=== PATIENT | female | born 1990 | race Caucasian/White ===

== ENCOUNTER 2018-04-26 11:27 | Emergency (ER) | payer OTHER ==
[2018-04-26 11:37] VITALS: BP 124/77
--- NOTE | 2018-04-26 11:59 | ER Document Report ---
ED Medical Screen (RME) - General Chief Complaint: Headache Stated Complaint: HEADACHE Time Seen by Provider: 04/26/18 11:54 Mode of Arrival: Ambulatory Information source: Patient Notes: 27-year-old female with no reported past medical history presents with complaint of 1 week of intermittent headache that she describes as throbbing, located in different areas of her head. Patient has had associated blurred vision. She has taken Tylenol without relief. Her last dose was this morning. Patient does have a history of kidney failure secondary to preeclampsia. Patient is also concerned because she has been unable to detect a heart rate at home. I have greeted and performed a rapid initial assessment of this patient. A comprehensive ED assessment and evaluation of the patient including analysis of labs and imaging ( if obtained) and completion of medical decision making will be conducted by an additional ED provider. PHYSICAL EXAMINATION: GENERAL: Well-appearing, well-nourished and in no acute distress. HEAD: Atraumatic, normocephalic. EYES: Pupils equal round extraocular movements intact, conjunctiva are normal. ENT: Nares patent NECK: Normal range of motion LUNGS: No respiratory distress Musculoskeletal: Normal range of motion NEUROLOGICAL: Normal speech, normal gait. PSYCH: Normal mood, normal affect. SKIN: Warm, Dry, normal turgor, no rashes or lesions noted. TRAVEL OUTSIDE OF THE [place] IN LAST 30 DAYS: No - Related Data Allergies/Adverse Reactions: zolpidem tartrate [From Ambien] Adverse Reaction (Intermediate, Verified 16:39) Hallucinations Past Medical History - Immunizations Immunizations up to date: Yes Hx Diphtheria, Pertussis, Tetanus Vaccination: Yes - 07/12/13 Physical Exam - Vital signs Vitals: Temp Pulse Resp BP Pulse Ox 98.6 F 109 H 18 124/77 98 04/26/18 11:35 04/26/18 11:35 04/26/18 11:35 04/26/18 11:35 04/26/18 11:35 Course - Vital Signs Vital signs: Temp Pulse Resp BP Pulse Ox 98.6 F 109 H 18 124/77 98 04/26/18 11:35 04/26/18 11:35 04/26/18 11:35 04/26/18 11:35 04/26/18 11:35
[2018-04-26] MEDS ORDERED: DIPHENHYDRAMINE HCL 50 MG/ML VIAL IV ONE (12:27)
[2018-04-26] MEDS ORDERED: PROCHLORPERAZINE EDISYLATE INJ 10 MG/2 ML VIAL IV ONE (12:27)
[2018-04-26] MEDS ORDERED: NORMAL SALINE 1000 ML 1,000 ML IV ONE (12:27)
--- NOTE | 2018-04-26 12:30 | ER Document Report ---
ED Headache - General Mode of Arrival: Ambulatory Information source: Patient TRAVEL OUTSIDE OF THE [place] IN LAST 30 DAYS: No <ALEXEI COELHO - Last Filed: 04/26/18 12:25> <FERNANDO MUNSON - Last Filed: 04/26/18 14:30> - General Chief Complaint: Headache Stated Complaint: HEADACHE Time Seen by Provider: 04/26/18 11:54 Notes: Patient is a 27 year old female currently 14 weeks presents to the emergency department complaining of a headache onset 1 week ago. Patient states her headache has been intermittent and is located all over, further stating she sometimes the headache is located frontally or globally. She also complains of some blurry vision. Patient denies any new nausea, vomiting or vaginal bleeding. Patient also mentions being unable to hear heart tones today further stating she has been listening every week and was unable to do so this morning. Patient is and states with her 1st in 2012 she had kidney failure secondary to preeclampsia. She also states she had to be induced at 37 weeks with her 2nd due to loosing blood and being unable to pinpoint why. (ALEXEI COELHO) - Related Data Allergies/Adverse Reactions: zolpidem tartrate [From Ambien] Adverse Reaction (Intermediate, Verified 12:02) Hallucinations Past Medical History - General Information source: Patient - Social History Smoking Status: Never Smoker Chew tobacco use (# tins/day): No Frequency of alcohol use: None Drug Abuse: None Family History: None Patient has suicidal ideation: No Patient has homicidal ideation: No - Immunizations Immunizations up to date: Yes Hx Diphtheria, Pertussis, Tetanus Vaccination: Yes - 07/12/13 <ALEXEI COELHO - Last Filed: 04/26/18 12:25> Review of Systems - Review of Systems Constitutional: No symptoms reported EENT: See HPI, Blurred vision Cardiovascular: No symptoms reported Respiratory: No symptoms reported Gastrointestinal: No symptoms reported Genitourinary: No symptoms reported Female Genitourinary: See HPI, Musculoskeletal: No symptoms reported Skin: No symptoms reported Hematologic/Lymphatic: No symptoms reported Neurological/Psychological: See HPI, Headaches -: Yes All other systems reviewed and negative <ALEXEI COELHO - Last Filed: 04/26/18 12:25> Physical Exam - HEENT Head: Normocephalic, Atraumatic Eyes: Normal Conjunctiva: Normal Extraocular movements intact: Yes Pupils: PERRL Sinus: Normal. No: Redness, Swelling, Tenderness Mucous membranes: Normal Neck: Normal - Respiratory Respiratory status: No respiratory distress Chest status: Nontender Breath sounds: Normal Chest palpation: Normal - Cardiovascular Rhythm: Regular Heart sounds: Normal auscultation Murmur: No Friction rub: No Gallop: None auscultated - Abdominal Inspection: Normal Distension: No distension Bowel sounds: Normal Tenderness: Nontender Organomegaly: No organomegaly - Back Back: Normal - Extremities General upper extremity: Normal ROM General lower extremity: Normal ROM - Neurological Neuro grossly intact: Yes Cognition: Normal Orientation: AAOx4 [place] Coma Scale Eye Opening: Spontaneous Susie Coma Scale Verbal: Oriented Susie Coma Scale Motor: Obeys Commands [place] Coma Scale Total: 15 Speech: Normal - Psychological Associated symptoms: Normal affect, Normal mood - Skin Skin Temperature: Warm Skin Moisture: Dry Skin Color: Normal <ALEXEI COELHO - Last Filed: 04/26/18 12:25> - Vital signs Vitals: Temp Pulse Resp BP Pulse Ox 98.6 F 109 H 18 124/77 98 04/26/18 11:35 04/26/18 11:35 04/26/18 11:35 04/26/18 11:35 04/26/18 11:35 Course <ALEXEI COELHO - Last Filed: 04/26/18 12:25> - Laboratory Result Diagrams: 04/26/18 13:15 04/26/18 13:15 <FERNANDO MUNSON - Last Filed: 04/26/18 14:30> - Re-evaluation Re-evalutation: 04/26/18 14:27 Patient reports that her headache is completely gone and she feels back to normal. I reviewed her history again with her, the physical exam which did not support a muscle tension type headache. The complete elimination of her headache with only IV fluids, Benadryl and Compazine. She also mentioned an episode on the toilet yesterday where she felt like she was going to black out and her vision was blurry briefly. She is advised to follow-up with her [employer] doctor if the headaches return for further evaluation, and treatment for possible migraine. (FERNANDO MUNSON) - Vital Signs Vital signs: Temp Pulse Resp BP Pulse Ox 98.6 F 109 H 18 124/77 98 04/26/18 11:35 04/26/18 11:35 04/26/18 11:35 04/26/18 11:35 04/26/18 11:35 - Laboratory Laboratory results interpreted by me: 04/26/18 04/26/18 12:05 13:15 BUN 5 L Glucose 63 L Ur Leukocyte Esterase SMALL H Discharge <ALEXEI COELHO - Last Filed: 04/26/18 12:25> <FERNANDO MUNSON - Last Filed: 04/26/18 14:30> - Discharge Clinical Impression: Migraine headache Qualifiers: Migraine type: unspecified Status migrainosus presence: without status migrainosus Intractability: not intractable Qualified Code(s): G43.909 - Migraine, unspecified, not intractable, without status migrainosus Qualifiers: Weeks of gestation: 14 weeks Qualified Code(s): Z3A.14 - 14 weeks gestation of Condition: Stable Disposition: HOME, SELF-CARE Additional Instructions: Headache: The physician does not feel that the headache you are experiencing has a serious underlying cause. Most headaches are due to emotional stress, with resultant muscle tension (tension headache). Occasionally, headaches are secondary to changes in the blood vessels of the scalp (vascular headache and migraine headache). Sometimes, a headache is the first symptom of another developing illness, such as a viral infection. You have no evidence of stroke, bleeding, meningitis, or other serious cause of your headache. The treatment of headaches varies with the severity and cause of the pain. Not all headaches need pain shots. In fact, there is evidence that using narcotics for headaches may make them worse in the long run. The physician will determine the therapy that's in your best interest. If you develop a fever, if the headache is different from any you've previously experienced, or if the headache progressively worsens, then call your physician at once or go to the emergency room. Your history, physical exam, and response to treatment is most consistent with a migraine headache. Drink plenty of fluids and rest today. Follow-up with your [employer] doctor tomorrow if the headaches return. RETURN TO THE EMERGENCY ROOM IF ANY NEW OR WORSENING SYMPTOMS. Scribe Attestation: 04/26/18 12:44 I personally performed the services described in the documentation, reviewed and edited the documentation which was dictated to the scribe in my presence, and it accurately records my words and actions. (FERNANDO MUNSON) Devinibe Documentation - Scribe Written by Karley:: Karley Chatman, 04/26/2018 12:32 acting as scribe for :: Julio Cesar <ALEXEI COELHO - Last Filed: 04/26/18 12:25>
[2018-04-26 12:55] LABS: APPEARANCE,URINE CLEAR; BILIRUBIN,URINE NEGATIVE (NEGATIVE); COLOR,URINE YELLOW; GLUCOSE, URINE NEGATIVE (NEGATIVE); KETONES,URINE NEGATIVE (NEGATIVE); LEUKOCYTE ESTERASE,URINE SMALL (NEGATIVE); NITRITE,URINE NEGATIVE (NEGATIVE); PROTEIN,URINE NEGATIVE (NEGATIVE); URINE SPECIFIC GRAVITY 1.005; UROBILINOGEN,URINE NEGATIVE mg/dL (<2.0)
[2018-04-26 13:31] LABS: ABSOLUTE EOSINOPHILS # (AUTO) 0.3 10^3/uL (0.0-0.6); ABSOLUTE LYMPHOCYTES (AUTO) 1.6 10^3/uL (0.5-4.7); ABSOLUTE MONOCYTES (AUTO) 0.5 10^3/uL (0.1-1.4); ABSOLUTE NEUT (AUTO) 6.9 10^3/uL (1.7-8.2); BASOPHILS % (AUTO) 0.4 % (0-2); EOSINOPHILS % (AUTO) 3.5 % (0-6); HEMATOCRIT 39.9 % (36.0-47.0); HEMOGLOBIN 13.8 g/dL (12.0-15.5); LYMPHOCYTES % (AUTO) 17.2 % (13-45); MEAN CORPUSCULAR HEMOGLOBIN 29.6 pg (27.0-33.4); MEAN CORPUSCULAR HGB CONC 34.6 g/dL (32.0-36.0); MEAN CORPUSCULAR VOLUME 86 fl (80-97); MONOCYTES % (AUTO) 5.3 % (3-13); PLATELET COUNT 226 10^3/uL (150-450); RED BLOOD COUNT 4.67 10^6/uL (3.72-5.28); RED CELL DISTRIBUTION WIDTH 12.6 % (11.5-14.0); SEGMENTED NEUTROPHILS % (AUTO) 73.6 % (42-78); TOTAL CELLS COUNTED % (AUTO) 100 %; WHITE BLOOD COUNT 9.3 10^3/uL (4.0-10.5)
[2018-04-26 13:50] LABS: ALANINE AMINOTRANSFERASE 24 U/L (9-52); ALBUMIN 3.7 g/dL (3.5-5.0); ALKALINE PHOSPHATASE 70 U/L (38-126); ANION GAP 10 (5-19); ASPARTATE AMINO TRANSFERASE 17 U/L (14-36); BILIRUBIN,DIRECT 0.2 mg/dL (0.0-0.4); BILIRUBIN,TOTAL 0.4 mg/dL (0.2-1.3); BLOOD UREA NITROGEN 5 mg/dL (7-20); CALCIUM 9.8 mg/dL (8.4-10.2); CARBON DIOXIDE 24 mmol/L (22-30); CHLORIDE 107 mmol/L (98-107); GLUCOSE 63 mg/dL (75-110); POTASSIUM 3.9 mmol/L (3.6-5.0); SODIUM 141.1 mmol/L (137-145); TOTAL PROTEIN 6.9 g/dL (6.3-8.2)
== END 2018-04-26 15:08 | disposition home or self-care (01) ==
LOC: ER 11:27
DX: G43.909 Migraine, unspecified, not intractable, without status migrainosus (principal); H53.8 Other visual disturbances; Z3A.14 14 weeks gestation of pregnancy
CPT/HCPCS: 99284; 96361; 96374; 96375; 36415; 83735; 85025; 80053; 81001; J1200; J0780; J7030

== ENCOUNTER 2019-10-03 19:08 | Emergency (ER) | payer SELFPAY ==
[2019-10-03 19:23] VITALS: BP 119/80
[2019-10-03] MEDS ORDERED: AMOXICILLIN TR/POT CLAVULANATE 500-125 MG TAB PO ONE (20:11)
[2019-10-03] MEDS ORDERED: AMOXICILLIN TRIHYDRATE 500 MG CAPSULE PO ONE (20:12)
--- NOTE | 2019-10-03 20:18 | ER Document Report ---
HPI - HPI Time Seen by Provider: 10/03/19 20:03 Pain Level: 4 Context: Healthy 28-year-old female presents emergency department with chief complaint of severe sinus pressure, headache, nasal congestion for the past 3-1/2 weeks. Patient states that she has been taking Sudafed [id number] for the past 3 weeks with no resolution. She had a little relief today but then started having significant left ear pain, swelling of the left side of her face, and severe jaw pain. No fevers or chills, no difficulty swallowing, no neck stiffness, no cough, no shortness of breath or chest pain, no nausea/vomiting/diarrhea. No other complaints - CONSTITUTIONAL Constitutional: DENIES: Fever, Chills - EENT EENT: REPORTS: Ear Pain. DENIES: Sore Throat - CARDIOVASCULAR Cardiovascular: DENIES: Chest pain - RESPIRATORY Respiratory: DENIES: Trouble Breathing, Coughing - GASTROINTESTINAL Gastrointestinal: DENIES: Abdominal Pain, Black / Bloody Stools - REPRODUCTIVE Reproductive: DENIES: : Past Medical History - Social History Smoking Status: Never Smoker Frequency of alcohol use: None Drug Abuse: None Family History: None Patient has suicidal ideation: No Patient has homicidal ideation: No Renal/ Medical History: Denies: Hx Peritoneal Dialysis - Immunizations Immunizations up to date: Yes Hx Diphtheria, Pertussis, Tetanus Vaccination: Yes - 07/12/13 Vertical Provider Document - CONSTITUTIONAL Notes: PHYSICAL EXAMINATION: Reviewed vital signs and charting by RN GENERAL: Alert, interacts well. No acute distress. HEAD: Normocephalic, atraumatic. Tenderness to palpation over the maxillary and frontal sinuses, pain when leaning forward. Patient with some soft tissue swelling of the left cheek inside the mouth and submandibular lymphadenopathy EYES: Pupils equal and round. Extraocular movements intact. ENT: Oral mucosa moist, tongue midline. Left TM with some mild bulging no erythema NECK: Full range of motion. Trachea midline. LUNGS: Clear to auscultation bilaterally, no wheezes, rales, or rhonchi. No respiratory distress. HEART: Regular rate and rhythm. No murmur ABDOMEN: soft, non-tender. No distention. Bowel sounds present EXTREMITIES: Moves all 4 extremities spontaneously. No edema, No cyanosis. PSYCH: Normal affect, normal mood. SKIN: Warm, dry, normal turgor. No rashes or lesions noted. - INFECTION CONTROL TRAVEL OUTSIDE OF THE [place] IN LAST 30 DAYS: No Course - Re-evaluation Re-evalutation: 10/03/19 20:18 Patient is nontoxic-appearing. Her symptoms are consistent with a bacterial sinusitis as she has had significant sinus pressure, headache, and discharge for 3-1/2 weeks. Therefore, I am going to prescribe her Augmentin. She also has what appears to be a skin and soft tissue infected in the left side of her face with lymphadenitis. Airway is patent. Patient has been given discharge instructions, strict return precautions, and she is stable for discharge. - Vital Signs Vital signs: Temp Pulse Resp BP Pulse Ox 98.1 F 81 18 119/80 99 10/03/19 20:03 10/03/19 19:20 10/03/19 20:03 10/03/19 19:20 10/03/19 20:03 Discharge - Discharge Clinical Impression: Bacterial sinusitis, Lymphadenitis, Left ear pain Condition: Good Disposition: HOME, SELF-CARE Additional Instructions: You are seen in the emergency department and treated for an acute bacterial sinusitis, swollen lymph nodes, and skin and soft tissue swelling. Because your symptoms have been going on for 3 to 4 weeks I am going to put you on Augmentin. You got your first dose here in the emergency department and you can take 1 tablet in the morning and 1 tablet in the evening for 10 days after you get it filled tomorrow. Please note, Augmentin can cause GI upset so please take it with some food. Please return to the emergency department if you develop worsening symptoms after being on the antibiotics for several days, high fevers, inability to swallow or handle your secretions, acute shortness of breath or chest pain, intractable nausea or vomiting, or any other concerning symptoms. Prescriptions: Amox Tr/Potassium Clavulanate [Augmentin 875-125 Tablet] 1 tab PO BID 10 Days tablet Forms: Return to Work
== END 2019-10-03 20:19 | disposition home or self-care (01) ==
LOC: ER 19:08
DX: J32.8 Other chronic sinusitis (principal); B96.89 Other specified bacterial agents as the cause of diseases classified elsewhere; I88.9 Nonspecific lymphadenitis, unspecified; H92.02 Otalgia, left ear; R51 Headache; R09.81 Nasal congestion
CPT/HCPCS: 99283